=== PATIENT | female | born 1990 | race Caucasian/White ===

== ENCOUNTER 2018-08-16 17:33 | Emergency (ER) | payer OTHER ==
[~2018-08-16] VITALS: Ht 172.7 cm; Wt 79.5 kg
[2018-08-16] MEDS ORDERED: IBUP-1506 PO (17:54)
[2018-08-16 18:30] LABS: APPEARANCE,URINE CLEAR (CLEAR); BILIRUBIN,URINE NEGATIVE (NEGATIVE); GLUCOSE, URINE (UA) NEGATIVE (NEGATIVE); KETONES,URINE NEGATIVE (NEGATIVE); LEUKOCYTE ESTERASE ,URINE SMALL (NEGATIVE); NITRATE,URINE NEGATIVE (NEGATIVE); OCCULT BLOOD,URINE NEGATIVE (NEGATIVE); PH,URINE 5.5 (5.0-8.0); PROTEIN,URINE NEGATIVE (NEGATIVE); UROBILINOGEN,URINE 0.2 mg/dL (<=1.0)
[2018-08-16 18:38] LABS: RBC,URINE 0-2 /HPF (0-2)
[2018-08-16 18:39] LABS: BACTERIA,URINE Moderate /HPF (None Seen)
[2018-08-16 18:40] LABS: SQUAMOUS EPITHELIAL CELL,UR Few /LPF (None Seen)
[2018-08-16] MEDS ORDERED: CefTRIAXone SODIUM 1 GM/VIAL IM ONE (19:00)
[2018-08-16] MEDS ORDERED: NITROFURANTOIN/NITROFURAN MAC 100 MG CAPSULE [MACROBID] PO ONE (19:00)
[2018-08-16] MEDS ORDERED: LIDOCAINE/PF 1% 2 ML VIAL IM ONE (19:00)
[2018-08-16] MEDS ORDERED: AZITHROMYCIN 250 MG TABLET PO ONE (19:15)
[2018-08-16 19:34] VITALS: BP 134/76
== END 2018-08-16 20:01 | disposition home or self-care (01) ==
LOC: EMS 17:33
DX: N39.0 Urinary tract infection, site not specified (principal); Z72.51 High risk heterosexual behavior; F10.20 Alcohol dependence, uncomplicated; F41.9 Anxiety disorder, unspecified; F17.210 Nicotine dependence, cigarettes, uncomplicated; Z79.899 Other long term (current) drug therapy; Z90.49 Acquired absence of other specified parts of digestive tract
CPT/HCPCS: 81001; 84703; 87077; 87086; 87186; 96372; 99283; 99406; J0696; J3490

== ENCOUNTER 2019-04-25 17:53 | Observation (INO) | payer OTHER ==
[~2019-04-25] VITALS: Ht 172.7 cm; Wt 86.8 kg
[~2019-04-25 17:53] MED LIST: IBUP-1506 PO
[2019-04-25 19:00] LABS: BASOPHILS % (AUTO) 0.4 % (0.0-2.0); EOSINOPHILS % (AUTO) 1.1 % (1.0-6.0); HEMATOCRIT 32.6 % (36-46); LYMPHOCYTES # (AUTO) 1.8 K/uL (1.0-4.8); LYMPHOCYTES % (AUTO) 18.7 % (22.0-44.0); MEAN CORPUSCULAR HGB CONC 33.7 G/dL (31.0-37.0); MEAN CORPUSCULAR VOLUME 89 fL (80-100); MONOCYTES # (AUTO) 0.4 K/uL (0.1-1.0); MONOCYTES % (AUTO) 4.7 % (2.0-9.0); NEUTROPHILS # (AUTO) 7.1 K/uL (1.8-7.7); NEUTROPHILS % (AUTO) 75.1 % (40.0-70.0); PLATELET COUNT (AUTO) 267 K/uL (150-450); RED BLOOD CELL COUNT(AUTO) 3.67 MIL/uL (4.00-5.20); RED CELL DISTRIBUTION WIDTH 13.4 % (11.5-14.5)
[2019-04-25 19:18] LABS: ANION GAP 6 mmol/L (8-16); CALCIUM, TOTAL 8.9 mg/dL (8.8-10.5); CARBON DIOXIDE 26 mmol/L (22-29); CHLORIDE 105 mmol/L (98-107); GLOMERULAR FILTR. RATE CALC > 60 mL/min (>60); GLUCOSE,RANDOM 88 mg/dL (70-110); POTASSIUM 4.1 mmol/L (3.5-5.1); SODIUM SERUM 137 mmol/L (136-145); UREA NITROGEN, BLOOD 4 mg/dL (7-18)
[2019-04-25 19:24] LABS: ALANINE AMINOTRANSFERASE 12 U/L (12-78); ALBUMIN 2.5 g/dL (3.4-5.0); ALKALINE PHOSPHATASE 101 U/L (46-116); ASPARTATE AMINOTRANSFERASE 12 U/L (15-37); BILIRUBIN,TOTAL 0.2 mg/dL (0.1-1.0); LIPASE 214 U/L (73-393); TOTAL PROTEIN, SERUM 6.7 g/dL (6.4-8.2)
[2019-04-25] MEDS ORDERED: RINGERS SOLUTION,LACTATED 1,000 ML IV SCH ×2 (19:50→20:43)
[2019-04-25 20:23] VITALS: BP 115/76
== END 2019-04-25 21:50 | disposition home or self-care (01) ==
LOC: EMS 17:53 → 4S 19:20
PROVIDERS: ADMIT Obstetrics & Gynecology; ATTEND Obstetrics & Gynecology
DX: O99.89 Other specified diseases and conditions complicating pregnancy, childbirth and the puerperium (principal); H92.09 Otalgia, unspecified ear; K08.89 Other specified disorders of teeth and supporting structures; O26.893 Other specified pregnancy related conditions, third trimester; R11.0 Nausea; O34.219 Maternal care for unspecified type scar from previous cesarean delivery; R50.9 Fever, unspecified; R09.89 Other specified symptoms and signs involving the circulatory and respiratory systems; R52 Pain, unspecified; Z87.891 Personal history of nicotine dependence; Z3A.33 33 weeks gestation of pregnancy
CPT/HCPCS: 80053; 81001; 83690; 85025; 99284; G0378; J7120

== ENCOUNTER 2019-05-16 12:00 | Observation (INO) | payer OTHER ==
[~2019-05-16] VITALS: Ht 172.7 cm; Wt 88.9 kg
[2019-05-16] MEDS ORDERED: PREN-217 PO (12:09)
[2019-05-16 12:30] VITALS: BP 108/61
== END 2019-05-16 14:15 | disposition home or self-care (01) ==
LOC: 4S 12:00
PROVIDERS: ADMIT Obstetrics & Gynecology; ATTEND Obstetrics & Gynecology
DX: O60.03 Preterm labor without delivery, third trimester (principal); Z3A.36 36 weeks gestation of pregnancy; Z90.49 Acquired absence of other specified parts of digestive tract; Z98.891 History of uterine scar from previous surgery
CPT/HCPCS: 59025; 81001; G0378

== ENCOUNTER 2021-08-08 12:53 | Emergency (ER) | payer OTHER ==
[~2021-08-08] VITALS: Ht 170.2 cm; Wt 88.6 kg
[~2021-08-08 12:53] MED LIST changes: -IBUP-1506 PO; +PREN-217 PO
[2021-08-08 13:54] VITALS: BP 152/95
== END 2021-08-08 13:54 | disposition left against medical advice (07) ==
LOC: EMS 12:53
DX: Z53.21 Procedure and treatment not carried out due to patient leaving prior to being seen by health care provider (principal)

== ENCOUNTER 2022-10-06 22:08 | Emergency (ER) | payer OTHER ==
[~2022-10-06] VITALS: Ht 172.7 cm; Wt 90.9 kg
[2022-10-07] MEDS ORDERED: HYDR-4808 PO (03:03)
[2022-10-07 03:40] VITALS: BP 130/79; PULSE 70; RESP 18; TEMP 97.3
== END 2022-10-07 04:23 | disposition home or self-care (01) ==
LOC: EMS 22:09
DX: F41.9 Anxiety disorder, unspecified (principal); R06.02 Shortness of breath; F17.210 Nicotine dependence, cigarettes, uncomplicated; I10 Essential (primary) hypertension; E11.9 Type 2 diabetes mellitus without complications; Z90.49 Acquired absence of other specified parts of digestive tract; Z98.890 Other specified postprocedural states
CPT/HCPCS: 71045; 93005; 99283